=== PATIENT | female | born 1975 | race Caucasian/White ===

== ENCOUNTER 2023-05-19 06:19 | Day surgery (SDC) | payer OTHER ==
[2023-05-19] MEDS ORDERED: Lactated Ringers 1,000 ML IV ONE (06:36)
[2023-05-19 06:51] VITALS: RESP 18
[2023-05-19] MEDS ORDERED: Lactated Ringers 1,000 ML IV SCH (07:00)
[2023-05-19] MEDS ORDERED: Xylocaine-Mpf 2% 5 Ml Vial ONE (08:00)
[2023-05-19] MEDS ORDERED: DIPRIVAN 200 MG/20 ML IV ONE ×2 (08:00→08:19)
[2023-05-19] MEDS ORDERED: Versed 2 MG/2 ML Injection ONE (08:01)
[2023-05-19 09:03] VITALS: TEMP 97.8; O2SAT 94
[2023-05-19 09:19] VITALS: BP 97/56; PULSE 67
--- NOTE | 2023-05-19 11:40 | OP ---
SURGERY DATE/TIME: 05/19/2023 0803 PREOPERATIVE DIAGNOSIS: Screening exam. POSTOPERATIVE DIAGNOSIS: Small polyp in the cecum and mild sigmoid diverticulosis. PROCEDURE: Colonoscopy with cold forceps biopsy. SURGEON: Dr. Chaudhary. ANESTHESIA: Medications given by anesthesia department. HISTORY: The patient is a 48-year-old white female presenting now for screening colonoscopy. The patient was appraised of the risks of the procedure including the risk of perforation, phlebitis, untoward reaction to medication, bleeding and missed lesions. The patient verbalized her understanding and desired to have the procedure performed. DESCRIPTION OF PROCEDURE: The patient was given the medications by the anesthesia department. She had continuous pulse oximetry, ECG monitoring and intermittent blood pressure monitoring during the examination. She was placed in the left lateral decubitus position. A digital rectal examination was performed and revealed normal anal sphincter tone and no masses. The flexible Olympus pediatric colonoscope was used to intubate the rectum. A view of the colon was developed sequentially to the cecum where we found a small polyp measuring approximately 0.5 cm in size this is biopsied and destroyed using one pass of the cold forceps biopsy instrument. The scope was then carefully removed with inspection of the colon. No other mucosal lesion encountered other than occasional sigmoid diverticula. The scope was removed from the patient who tolerated the procedure well and was sent back to OP recovery in good condition. The prep was noted to be good to fair.
== END 2023-05-19 09:24 | disposition home or self-care (01) ==
LOC: SDC 06:19
PROVIDERS: ATTEND Family Medicine
DX: Z12.11 Encounter for screening for malignant neoplasm of colon (principal); K63.5 Polyp of colon; K57.30 Diverticulosis of large intestine without perforation or abscess without bleeding
CPT/HCPCS: J2250; J2704